=== PATIENT | male | born 1960 | race Caucasian/White ===

== ENCOUNTER 2023-10-24 15:34 | Emergency (ER) | payer BC, SELFPAY ==
[2023-10-24 15:47] VITALS: BP 117/69; PULSE 66; RESP 16; TEMP 36.6; O2SAT 98
[2023-10-24 16:17] VITALS: BP 117/69; PULSE 66; RESP 16; TEMP 36.6; O2SAT 98
--- NOTE | 2023-10-24 16:24 | ED.GENADUL_ITS ---
HPI General Stated Complaint: DentalOral Mode of arrival: ambulatory. CARLIN: 4 Date/Time Provider Initiated Documentation: 10/24/23 16:06. Limitations to Documentation: no limitations. Information obtained by: patient, RN notes reviewed and old records reviewed. HPI Narrative: 63-year-old male presents to the ER with chief complaint of left-sided dental pain which has been ongoing for the last 2 weeks worse past couple of days. He is complaining of lower left molar pain which has multiple fillings. No surrounding gingival fluctuance or signs of abscess no drainage. He has no trismus. He reports pain radiates up into his left ear and left buddhist. No pain with palpation to his left buddhist. Related Data Home Medications Medication Instructions Recorded Confirmed amlodipine 5 mg tablet 5 mg PO DAILY 10/24/23 10/24/23 aspirin 81 mg tablet,delayed 81 mg PO DAILY 10/24/23 10/24/23 release (Adult Low Dose Aspirin) atorvastatin 80 mg tablet 80 mg PO DAILY 10/24/23 10/24/23 empagliflozin 25 mg tablet 25 mg PO DAILY 10/24/23 10/24/23 (Jardiance) hydrochlorothiazide 25 mg tablet 25 mg PO DAILY 10/24/23 10/24/23 lisinopril 40 mg tablet 40 mg PO DAILY 10/24/23 10/24/23 metoprolol tartrate 50 mg tablet 50 mg PO DAILY 10/24/23 10/24/23 Review of Systems All systems reviewed & are unremarkable except as noted in HPI and below ENT Ears, Nose, Mouth, and Throat: Denies bleeding gums, Denies halitosis, Denies change in voice, Reports dental pain, Denies dysphagia, Denies dizziness, Denies neck mass, Denies neck pain, Denies sinus pain, Denies sinus pressure and Denies tongue swelling Gastrointestinal Gastrointestinal: Denies dysphagia Musculoskeletal Musculoskeletal: Denies neck pain Neurologic Neurologic: Denies dizziness Allergic/Immunologic Allergic/Immunologic: Denies tongue swelling [facility] Social History Smoking/Tobacco Use Status: Current every day Tobacco Type: cigarettes Tobacco: How many years used: 25 Smoking risk assessment performed?: Yes Alcohol Intake: current Alcohol Intake frequency: a few times a month Drug use: Never Substance use type: does not use Housing: house Do you feel safe at home: Yes Do you feel safe in your relationship?: Yes Exam [facility] Head: normal to inspection Ears: hearing grossly normal bilaterally, external ears normal and TM's normal bilaterally General nose exam: external nose normal Face and sinus: normal facial exam Teeth and gingiva: poor dentition Teeth image: 2 1. Fillings noted, no surrounding swelling, signs of abscess, drainage or fluctuance. He does have poor dentition and eroded teeth at the gumline to upper and lower. Course Vital Signs Vital signs: Vital Signs Temperature 36.6 C 10/24/23 15:47 Pulse 66 10/24/23 15:47 Respiratory Rate 16 10/24/23 15:47 Blood Pressure 117/69 10/24/23 15:47 Pulse Oximetry 98 10/24/23 15:47 Temperature 36.6 C 10/24/23 16:17 Temperature Source Skin 10/24/23 16:17 Pulse 66 10/24/23 16:17 Respiratory Rate 16 10/24/23 16:17 Blood Pressure 117/69 10/24/23 16:17 Blood Pressure Position Sitting 10/24/23 16:17 Pulse Oximetry 98 10/24/23 16:17 Oxygen Delivery Method Room Air 10/24/23 16:17 Oxygen Flow Rate 0 10/24/23 16:17 Pain Level 7 10/24/23 16:17 Comment taking tylenol 10/24/23 16:17 Medical Decision Making 63-year-old male presents to the ER with chief complaint of left-sided dental pain which has been ongoing for the last 2 weeks worse past couple of days. He is complaining of lower left molar pain which has multiple fillings. No surrounding gingival fluctuance or signs of abscess no drainage. He has no trismus. He reports pain radiates up into his left ear and left buddhist. No pain with palpation to his left buddhist. His TMs bilaterally are within normal limits nonerythemic. He is a daily smoker. He has been taking Tylenol and azithromycin which was prescribed to him previously with little to no relief. Given benzocaine gel and 4 tablets of oxycodone to go. Discussed oral hygiene and rinsing out mouth after eating or drinking anything and smoking cessation. Patient has an appointment with a dentist next week at his place of home which is [place]. This text was generated using [employer] system, please disregard any oddities of phrase or misspellings. Discharge Plan Disposition Patient Disposition: Home Condition: Stable Discharge Details Primary Care Provider: [facility] Provider: Becky Jarquin Home Meds and New Rx's Prescriptions: No Action amlodipine 5 mg tablet 5 mg PO DAILY lisinopril 40 mg tablet 40 mg PO DAILY metoprolol tartrate 50 mg tablet 50 mg PO DAILY hydrochlorothiazide 25 mg tablet 25 mg PO DAILY atorvastatin 80 mg tablet 80 mg PO DAILY Jardiance 25 mg tablet 25 mg PO DAILY aspirin [Adult Low Dose Aspirin] 81 mg tablet,delayed release (DR/EC) 81 mg PO DAILY Discharge Instructions Instructions: [facility] (ED) Additional Instructions: You were given benzocaine gel which you can apply to the area up to 3 times daily as needed for pain. This will make your mouth numb. Please take the oxycodone as directed. Take it with food no driving or operating heavy machinery. This may make you sleepy. Please take Tylenol or Ibuprofen with food every 4-6 hours as needed for pain and swelling. You do still need to see a dentist please keep your dental appointment as prescribed. Discharge Data Discharge Date/Time-TO BE ENTERED AT DEPARTURE: 10/24/23 16:56
[2023-10-24] MEDS: Benzocaine 20% Gel 30 GM JAR MM (16:48)
== END 2023-10-24 16:56 | disposition home or self-care (01) ==
PROVIDERS: Emergency Provider Registered Nurse Emergency
DX: K08.89 Other specified disorders of teeth and supporting structures (principal); F17.210 Nicotine dependence, cigarettes, uncomplicated; Z79.82 Long term (current) use of aspirin
CPT/HCPCS: 99282